=== PATIENT | male | born 1990 | race Two or more races ===

== ENCOUNTER 2021-09-21 16:44 | Inpatient (IN) | payer MEDICARE, MEDICAID ==
[~2021-09-21] VITALS: Ht 175.3 cm; Wt 90.7 kg
[2021-09-21] MEDS ORDERED: HALOPERIDOL LACTATE INJ 5 MG/ML VIAL IM ONE (17:00)
[2021-09-21] MEDS ORDERED: LORAZEPAM INJ 2 MG/ML VIAL IM ONE (17:00)
--- NOTE | 2021-09-21 17:00 | NUR ---
[id number], admits on using meth,auditory hallucination "voices telling him to kill himself". want's voluntary admission to psych. On jefferson air, sitter at bedside for constant monitoring. Will continue to monitor accordingly.
--- NOTE | 2021-09-21 17:20 | NUR ---
ER PHLEB AT BEDSIDE FOR BLOOD DRAW.
[2021-09-21] MEDS ORDERED: HALOPERIDOL LACTATE INJ 5 MG/ML VIAL ONE (17:27)
[2021-09-21] MEDS ORDERED: LORAZEPAM INJ 2 MG/ML VIAL ONE (17:27)
[2021-09-21 17:40] LABS: BASOPHILS % (AUTO) 0.4 % (0.0-2.0); EOSINOPHILS % (AUTO) 0.4 % (0.0-6.0); HEMATOCRIT 46 % (39-51); HEMOGLOBIN 14.9 g/dL (13.5-17.5); LYMPHOCYTES # (AUTO) 2.1 K/uL (0.8-4.8); MEAN CORPUSCULAR HGB CONC 33 g/dl (31.0-36.0); MEAN CORPUSCULAR VOLUME 71 fL (80-96); MONOCYTES # (AUTO) 1.2 K/uL (0.1-1.30); MONOCYTES % (AUTO) 11.4 % (2.0-12.0); NEUTROPHILS # (AUTO) 6.9 K/uL (1.8-8.9); NEUTROPHILS % (AUTO) 67.8 % (43.0-81.0); RED BLOOD CELL COUNT(AUTO) 6.42 MIL/uL (4.5-6.0); WHITE BLOOD COUNT (AUTO) 10.2 K/uL (4.3-11.0)
[2021-09-21 17:53] LABS: ALANINE AMINOTRANSFERASE 172 U/L (12-78); ALBUMIN 4.3 g/dL (3.4-5.0); ALKALINE PHOSPHATASE 90 U/L (46-116); ASPARTATE AMINOTRANSFERASE 816 U/L (15-37); BILIRUBIN,DIRECT 0.3 mg/dL (0.0-0.2); BILIRUBIN,TOTAL 1.4 mg/dL (0.2-1.0); CALCIUM, SERUM 8.9 mg/dL (8.5-10.1); CARBON DIOXIDE 24 mmol/L (21-32); CHLORIDE 97 mmol/L (98-107); CREATININE 1.5 mg/dL (0.6-1.3); GLUCOSE 74 mg/dL (74-106); POTASSIUM 3.2 mmol/L (3.5-5.1); SODIUM SERUM 136 mmol/L (136-145); TOTAL PROTEIN, SERUM 8.7 g/dL (6.4-8.2); UREA NITROGEN, BLOOD 21 mg/dL (7-18)
[2021-09-21 17:54] LABS: ACETAMINOPHEN < 10 ug/ml (10-30); ALCOHOL, BLOOD < 3 mg/dL (0-0)
[2021-09-21 18:21] LABS: EOSINOPHILS % (MANUAL) 1 % (0-4); LYMPHOCYTES % (MANUAL) 16 % (16-48); MONOCYTES % (MANUAL) 10 % (0-11.0); NEUTROPHILS % (MANUAL) 73 (42-76)
[2021-09-21] MEDS ORDERED: POTASSIUM CHLORIDE 20 MEQ TAB.PRT.SR PO ONE (19:00)
[2021-09-21 19:07] LABS: PLATELET COUNT (AUTO) 202 K/uL (150-450)
[2021-09-21 20:34] LABS: BILIRUBIN,URINE MODERATE (NEGATIVE); COLOR,URINE YELLOW (YELLOW); LEUKOCYTE ESTERASE ,URINE NEGATIVE (NEGATIVE); NITRITE, URINE NEGATIVE (NEGATIVE); PH,URINE 5.5 (5.0-8.0); PROTEIN,URINE 100 mg/dl (NEGATIVE); UGLUCOSE NEGATIVE (NEGATIVE); UROBILINOGEN,URINE 0.2 EU/dL (0.2)
[2021-09-21 21:00] LABS: BACTERIA,URINE 1+ /HPF (None Seen); FINE GRANULAR CASTS,URINE Few /LPF (None Seen); MUCUS,URINE Few /LPF (None Seen); RBC,URINE 21-50 /HPF (0-2); SQUAMOUS EPITHELIAL CELL,UR 0-2 /HPF (None Seen); URINE AMORPHOUS URATE Many /HPF (None Seen); WBC,URINE 0-2 /HPF (0-3)
[2021-09-21] MEDS ORDERED: IV NS 0.9% 1,000 ML IV ONE ×2 (21:00)
--- NOTE | 2021-09-21 21:23 | NUR ---
IV ESTABLISHED RH18G, STARTED IV FLUIDS. AWAITING ADMISSION.
--- NOTE | 2021-09-21 21:38 | NUR ---
MRSA SWAB COLLECTED AND SENT TO LAB. PATIENT'S BELONGINGS LIST DONE.
[2021-09-21] MEDS ORDERED: Z GUARD REMEDY 2 OZ OINT TP PRN (23:00)
[2021-09-21] MEDS ORDERED: MAGNESIUM HYDROXIDE 30 ML UDC PO PRN (23:00)
[2021-09-21] MEDS ORDERED: LORAZEPAM INJ 2 MG/ML VIAL IV PRN (23:00)
[2021-09-21] MEDS ORDERED: ZOLPIDEM TARTRATE 5 MG TABLET PO PRN (23:00)
[2021-09-21] MEDS ORDERED: MAG HYDROX/AL HYDROX/SIMETH 30 ML UDC PO PRN (23:00)
[2021-09-21] MEDS ORDERED: ACETAMINOPHEN 325 MG TABLET PO PRN (23:00)
[2021-09-21] MEDS ORDERED: ONDANSETRON HCL/PF 4 MG/2 ML VIAL IVP PRN (23:00)
[2021-09-22] MEDS: IV NS 0.9% 1,000 ML IV PRN (01:33)
[2021-09-22 05:10] LABS: BASOPHILS # (AUTO) 0.1 K/uL (0.0-0.2); BASOPHILS % (AUTO) 0.9 % (0.0-2.0); EOSINOPHILS % (AUTO) 2.8 % (0.0-6.0); HEMATOCRIT 38 % (39-51); HEMOGLOBIN 12.8 g/dL (13.5-17.5); LYMPHOCYTES # (AUTO) 2.1 K/uL (0.8-4.8); LYMPHOCYTES % (AUTO) 27.5 % (20.0-44.0); MEAN CORPUSCULAR HGB CONC 33 g/dl (31.0-36.0); MEAN CORPUSCULAR VOLUME 70 fL (80-96); MONOCYTES # (AUTO) 1.3 K/uL (0.1-1.30); NEUTROPHILS # (AUTO) 3.9 K/uL (1.8-8.9); NEUTROPHILS % (AUTO) 51.8 % (43.0-81.0); PLATELET COUNT (AUTO) 167 K/uL (150-450); RED BLOOD CELL COUNT(AUTO) 5.51 MIL/uL (4.5-6.0); WHITE BLOOD COUNT (AUTO) 7.5 K/uL (4.3-11.0)
[2021-09-22 05:25] LABS: CALCIUM, SERUM 7.9 mg/dL (8.5-10.1); CARBON DIOXIDE 23 mmol/L (21-32); CHLORIDE 104 mmol/L (98-107); CREATININE 0.9 mg/dL (0.6-1.3); GLUCOSE 75 mg/dL (74-106); PHOSPHORUS 3.4 mg/dL (2.5-4.9); POTASSIUM 3.6 mmol/L (3.5-5.1); SODIUM SERUM 137 mmol/L (136-145); UREA NITROGEN, BLOOD 18 mg/dL (7-18)
[2021-09-22 06:13] LABS: CREATINE KINASE, TOTAL > 1000 U/L (39-308)
--- NOTE | 2021-09-22 07:45 | NUR ---
THE PATIENT IS HAVING BREKAFAST. TOLERATES PROVIDED MEAL WELL.
--- NOTE | 2021-09-22 07:51 | NUR ---
going to 106.
--- NOTE | 2021-09-22 08:00 | NUR ---
MED RECON UNABLE TO UPDATE HOME MEDICATION ONFORMATION. PATIENT UNABLE TO PRIVDE MEDICATION, PHARMACY OR DOCTOR'S INFORMATION..
--- NOTE | 2021-09-22 08:00 | NUR ---
report given to marcie Mazariegos. awaitng transfer to floor.
--- NOTE | 2021-09-22 08:08 | NUR ---
REPORT GIVEN TO NURSE SANTOS
--- NOTE | 2021-09-22 10:47 | NUR ---
DATABASE MARKETING SPECIALIST NOTES PATIENT FOR PSYCH CONSULT. DR. MCPHERSON OUTSIDE SALES ENGINEER. INFORMED OMID ROTARY DRIER OF DR. MCPHERSON, - PER HER SHE WOULD BE HERE TOMORROW. FACESHEET FAXED TO [employer]
[2021-09-22 11:38] LABS: EOSINOPHILS % (MANUAL) 5 % (0-4); LYMPHOCYTES % (MANUAL) 32 % (16-48); MONOCYTES % (MANUAL) 7 % (0-11.0); NEUTROPHILS % (MANUAL) 56 (42-76)
--- NOTE | 2021-09-22 15:18 | NUR ---
RN NOTES RECEIVED PT FROM ER, VS: B/P = 131/68, P = 94, RR = 18, TEMP = 98.1, 02 = 99, ROOM AIR, PT STATING HE IS HEARING VOICES TO KILL HIMSELF. REDIRECTED HELD HIS HAND GUIDED HIM THROUGH PRAYER AND GUIDED IMAGERY OF PEACE, ALICIA, LOVE, SAFETY, AND HAPPINESS EFFECTIVE. HE DID CRY AND SPOKE ABOUT SOME OF HIS PAST THAT BRING UP FEARS AND ANXIETY, REASSURED THE PAST IS THE PAST TODAY IS A NEW DAY LETS BOTH TRY TO MAKE IT POSITIVE AND GREAT, ABLE TO MAKE NEEDS KNOWN, A&OX3, OXYGEN 98% ROOM AIR, WELDING SUPERVISOR EVALUATED PATIENT AND PROVIDING CARE, POSSIBLE TRANSFER TO [facility] PHONE # [phone] EX: [phone]. AWAITING FINAL APPROVAL AND ORDERS, KEPT DRY, CLEAN, AND DIMMED LIGHTS FOR COMFORT, PT KEPT CLOSE TO NURSE STATION, PRIVATE SITTER ASSIGNED TO PATIENT, I PLACED MY WORK STATION RIGHT OUTSIDE PT ROOM FOR DIRECT OBSERVATION, NO SIGNIFICANT CHANGES AT THIS TIME, CALL LIGHT IN REACH. FOLLOWING COMMANDS AND ORDERS, COOPERATIVE BEHAVIOR AT THIS TIME.
--- NOTE | 2021-09-22 16:00 | NUR ---
"SS Consult: SS consult for substance abuse and homelessness. Pt. Is a 30-year-old male. Pt. demonstrates adequate insight to the reason for hospitalization. Pt. was oriented x4, alert, and cooperative. During interview, pt. was capable of following directions, and made appropriate eye-contact. Pt.s speech was at a normal rate. Pt.s mood was depressed. DEVON explored pt.s Hx of mental health and substance abuse. Pt. reported no homicidal, denies visual hallucinations, paranoia, or delusions. Pt. reported having auditory hallucinations, depression and anxiety, and substance abuse [amphetamine and marijuana, last used was 09/21]. Per pt., he wants to go to a rehab center. DEVON fax clinical reports to [facility] [fax: [phone], tele: [phone]]. Will await response from [place]. Pt. is currently suicidal and wants to stay another night at the hospital. Per pt., if he cannot stay another night, he will go jump off the roof of hospital. Per pt., he willing to go to [facility]. DEVON fax clinical reports to [facility] [fax: [phone], tele: [phone]]. Alen will notify ZANE once bed is available. DEVON explored pt.s living situation. Per pt., he is homeless and has lived in a custodial in [place] [pt. does not know the name]. Per pt., he reports having adequate support from mother. Plan: DEVON provided available resources and pt. accepted. Waiting response from [facility] Resources Provided: Winter Shelters: SPA 2 | [facility]: [facility] Address: Confidential (call for location ) Population Served: Coed # of Beds: 57 SPA 4 | [facility] Provider: Home at Last Address: [address] [place] [address], [address] # of Beds: 49 Population Served: Coed [facility] 6 | [facility] Provider: Home at Last Address: [address] [place] [address], [address] # of Beds: 49 Population Served: Coed [facility] Provider: Avril FARLEY Address: [address] [facility] [address] # of Beds: 20 Population Served: Women [facility] Facility Provider: Home at Last Address: [address] [facility] [address] # of Beds: 30 Population Served: Women SPA 8 | [facility] Provider: [facility] [place] Address: [address] [facility] [address] # of Beds: 65 Population Served: Coed Year-round shelters: [place] [address] [place], [place] [id number] ; [facility] [place] [facility] [place] [address] [place] [address]; [facility] Bplcoaf[address]167 [facility] [address] Winter Shelters: Floyd [place] Provider: [facility] [place] Address: [address] [place], [address] # of Beds: 47 Population Served: Coed SPA 6 | [facility] Magaly Lee [place] Provider: Home at Last Address: [address], [address] # of Beds: 66 Population Served: Coed [place] Provider: First to Serve Address: [address] [facility], [address] # of Beds: 56 Population Served: Coed Buzz Mary[place]Ricardo [place] Provider: / [facility] Address: [address] [facility], [address] # of Beds: 49 Population Served: Coed SPA 8 | [place] Provider: First to Serve Address: [address] [facility], [address] # of Beds: 37 Population Served: Coed Hygiene: [facility]: [address] [address] [place] ; [facility] [address] [place] [place] ; [facility] [address] [facility] . Food Resources: [place] [facility] at [facility]- [address]. [place]; Meet Each Need with Dignity ([facility]) [address] [facility]; [facility] Food Pantry 4394 [facility]; [facility] 8551 [facility]. Mental Health resources provided: [facility] [address] [place], [place] [address] ; [facility] [address] [facility] [address], [place], [place] [phone] ; [facility] Mental [facility] [address] [facility] [place], [place] [phone] ; [facility] [address] [place], [place] [address] Healthcare Clinics: [facility] [address] [facility], [address] [place]. [place] ; [facility] [address] [facility] [address] [place] [address]; [facility] [address] [facility]. [place] [phone] Counseling--Outpatient [facility] [address] [facility], [address] [place], [place] [address] (Specializes in in-depth psychotherapy for emotional distress: anxiety, depression, interpersonal conflicts, life transitions, childhood abuse) [facility] [address] [place] [address] (Assist with solving problem marital difficulties, separation & divorce, aging parents, & grief, chronic & terminal illness) [facility] [address] [place] [address] (Deal with loss & grief, anxiety, marital difficulties) Homebound/Mental Health Services [address] [facility], [address] [place] [address] (Provide in-home mental services to people who are incapable of leaving their homes) Organization for Needs of the Elderly Senior Service/Resource Center [address] [place] [address] [facility] [address] [place] [address] PSYCHIATRIC OUTPATIENT SERVICES [facility] Partial Hospitalization and Intensive Outpatient Program (Managed Care and [place] Only)[address] [facility]. [facility] [phone] [facility] Partial Hospitalization and Outpatient Heqtogx38682 [facility]. [address] [place], [place] [phone] [facility] Mental Health [place] Esb[address]842 [facility]. [address] [place], [place] [phone] [facility] Partial Hospitalization and Outpatient Bzpmjnn95620 [place], [phone] Substance Abuse resources provided included: [facility] Substance Abuse Self-Helpline ([facility]) ; CRI -HELP [address] [facility]. [place] [address] ; [facility] [address] [facility] [address] ; [facility] 8[address] [facility] Blvd[facility] [address] ; [facility] [address] [facility] [address] ; [facility] 49[address] [facility] [address] ; [facility] 909 [facility] [id number] ; [facility] Substance Abuse Helpline([facility] ; [facility] Family Counseling ; [facility]; [facility] [place]; Cri-Help [place]; [facility] Ramon Mcguire; [facility] [place]; [facility] [place]; [facility] [place]; [facility] Hospital[facility] Network for Outcomes Research(INOR) [facility]. Portillo Wilhelm; Alcoholics Anonymous -SFV; Dn-Fetg-Chmfpog ; Marijuana Anonymous -SFV; Narcotics Anonymous www.na.org;"
--- NOTE | 2021-09-22 18:48 | NUR ---
RN NOTES IT RISK ADVISOR IS SENDING PATIENT TO [facility] for the psych unit and treatment. Fax # info again to [phone] they were not able to read fax that social media manager had sent, attention to Andrea. The creatine levels need to be in normal range, they are abnormal at this time so they will not accept pt with these un normal labs. patient sleeping in room and cooperating with nurses and staff at this time.
--- NOTE | 2021-09-22 19:40 | NUR ---
1939 Report received from BERNARDO Pierson for transfer of care.
--- NOTE | 2021-09-22 19:50 | NUR ---
1950 Patient sleeping on his side. Wakes up easily and cooperative during assessment. No c/o pain when asked. No c/o SOB. Sitter watching patient closely. IV site on right hand intact. No signs of infiltration noted. Kept comfortable. Needs attended.
[2021-09-22 20:30] VITALS: BP 122/60
--- NOTE | 2021-09-22 23:00 | NUR ---
2300 Patient still sleeping, but easily arousable. No distress noted. Sitter at all times for safety. No behavior problems noted as patient is cooperative with care. All needs anticipated.
[2021-09-23] VITALS: BP 117/72
--- NOTE | 2021-09-23 01:00 | NUR ---
0100 No acute changes. Cooperative with care. Sitter monitoring patient at all times. Kept comfortable. Needs attended.
[2021-09-23 05:00] VITALS: BP 131/78
--- NOTE | 2021-09-23 05:00 | NUR ---
0500 Asleep but easily arousable. No changes in condition noted. Heplock on right hand intact and patent. Pt agreed this time to start IVF. Offered food but declined. Needs anticipated. Sitter at bedside.
[2021-09-23] MEDS: IV NS 0.9% 1,000 ML IV PRN (05:36)
--- NOTE | 2021-09-23 07:20 | NUR ---
0720 REPORT GIVEN TO BERNARDO COTTER FOR TRANSFER OF CARE.
--- NOTE | 2021-09-23 07:24 | NUR ---
RN OPENING NOTE RECEIVE REPORT FROM PALLIATIVE CARE PHYSICIAN NURSE. PATIENT IN STABLE CONDITION AT TIME OF REPORT. ON ROOM AIR WITH O2 SAT OF 97%. A/O X4. GETTING NS AT 100ML/HR. WAITING TO BE DISCHARGE TO [facility]. WILL FOLLOW UP. PROPER ISOLATION PRECAUTION IN PLACE. ALL SAFETY MEASURE IN PLACE. BED ON LOWEST POSITION WITH HOB ELEVATED. CALL LIGHT WITHIN REACH. WILL CONTINUE TO MONITOR.
[2021-09-23 09:00] VITALS: BP 133/88
--- NOTE | 2021-09-23 09:36 | NUR ---
SPOKE WITH ART CRISIS EVAL NURSE AND VERBALIZED HE WILL CALL PSYCHE LAND SURVEYING PARTY CHIEF .
--- NOTE | 2021-09-23 09:37 | NUR ---
QUINTON. NICHOLE CHAVEZ MADE AWARE,WILL CONTINUE TO MONITOR.
--- NOTE | 2021-09-23 10:46 | NUR ---
[facility] referral: DEVON followed up with [facility] regarding status of referral for voluntary psych admission to [facility] [[address] [place], [place] [id number] FAX:[phone]. Alen rquested this SW resend clinicals to [email or web address] as fax line is down. DEVON resent clinicals to [email or web address] [email or web address] [facility]. SW will follow up.
--- NOTE | 2021-09-23 15:36 | NUR ---
RN NOTE PATIENT PICKED UP BY AMBULANCE FOR TRANSFER TO [facility]. PT IN STABLE CONDITION AT TIME OF DISCHARGED V/S= BP:125/80, RR: 18, HR: 80, TEMP= 98.3. O2-97% ON ROOM AIR. IV HEPLOCK REMOVED, NO BLEEDING NOTED. NO SOB OR ANY DISTRESS NOTED AT THE TIME. REPORT GIVEN TO JAIMEE CHANG AT [facility]. Addendum: 09/23/21 at 1541 by MARILYN LENZ RN ALL BELONGINGS ACCOUNTED FOR, PATIENT SIGNED BELONGINGS CHECKLIST AND DISCHARGE PAPERWORKS.
[2021-09-23] MEDS ORDERED: OLANZAPINE 5 MG TABLET PO SCH (17:00)
[2021-09-23] MEDS ORDERED: DIVALPROEX SODIUM 250 MG TABLET.DR PO SCH (21:00)
== END 2021-09-23 15:30 | DRG 682 ==
LOC: ER 16:52 → TRANSITION 22:29 → TELE1 09-22 08:01 → MEDSG1 09-23 09:42
PROVIDERS: ADMIT Nurse Practitioner Acute Care; ATTEND Internal Medicine
DX: N17.0 Acute kidney failure with tubular necrosis (principal); G92.9 Unspecified toxic encephalopathy; M62.82 Rhabdomyolysis; R45.851 Suicidal ideations; Z59.00 Homelessness unspecified; E87.6 Hypokalemia; F17.210 Nicotine dependence, cigarettes, uncomplicated; F43.10 Post-traumatic stress disorder, unspecified; F25.0 Schizoaffective disorder, bipolar type; F15.10 Other stimulant abuse, uncomplicated; R74.01 Elevation of levels of liver transaminase levels; Z20.822 Contact with and (suspected) exposure to COVID-19
CPT/HCPCS: 36415; 80048-TC; 80074; 80076-TC; 81001; 82550-TC; 82553; 83605-TC; 83735-TC; 84100-TC; 85025-TC; 87081-TC; 97116-TC; 97530-TC; C9803; G0378; G0480; J1630; J2060; J2405; J7030